=== PATIENT | male | born 1955 | race Caucasian/White ===

== ENCOUNTER 2019-05-21 20:24 | Inpatient (IN) | payer OTHER ==
[~2019-05-21] VITALS: Ht 188 cm; Wt 104.3 kg
[2019-05-21] MEDS ORDERED: SODIUM CHLORIDE 0.9% 1,000 ML IV ONE (20:58)
[2019-05-21] MEDS ORDERED: ENOXAPARIN 100MG/ML SYR SUBCUT ONE (21:30)
[2019-05-21 21:39] LABS: HEMATOCRIT. 42.8 % (42.0-52.0); HEMOGLOBIN. 14.5 g/dL (14.0-18.0); MEAN CORPUSCULAR HEMOGLOBIN 30.5 pg (28.0-32.0); MEAN CORPUSCULAR VOLUME 90.2 fL (80.0-94.0); MEAN PLATELET VOLUME 8.3 fl (7.4-10.4); PLATELET 207 x1000/uL (130-400); RED BLOOD CELL COUNT 4.74 mill/uL (4.7-6.1); RED CELL DISTRIBUTION WIDTH 13.8 % (11.6-14.6)
[2019-05-21 21:46] LABS: CHLORIDE 106 mEq/L (98-107)
[2019-05-21 21:50] LABS: INR 1.1; PARTIAL THROMBOPLASTIN TIME 28.1 sec (23.4-31.0)
[2019-05-21 21:51] LABS: ETHANOL BLOOD < 10 mg/dL
[2019-05-21 22:17] LABS: PLATELET ESTIMATE NORMAL
[2019-05-21] MEDS ORDERED: IOHEXOL-350 100 ML BOTTLE ONE (23:21)
[2019-05-21] MEDS ORDERED: HYDRALAZINE 20MG/ML VIAL IV PRN (23:45)
[2019-05-21] MEDS ORDERED: IPRATROPIUM/ALBUTEROL 0.5-3(2.5)MG/3ML NEB HHN PRN (23:45)
[2019-05-21] MEDS ORDERED: LORAZEPAM 2MG/ML CPJ IV PRN (23:45)
[2019-05-21] MEDS ORDERED: DOCUSATE SODIUM 100MG CAPSULE PO PRN (23:45)
[2019-05-21] MEDS ORDERED: GUAIFENESIN 200MG/10ML SUGAR FREE UDC PO PRN (23:45)
[2019-05-21] MEDS ORDERED: HYDROCODONE/ACETAMINOPHEN 10/325MG TABLET PO PRN (23:45)
[2019-05-21] MEDS ORDERED: MAGNESIUM/ALUMINUM HYDROXIDE/SIMETHICONE 30ML UDC PO PRN (23:45)
[2019-05-21] MEDS ORDERED: NA PHOS,M-B/NA PHOS,DI-BA ENEMA 118ML PR PRN (23:45)
[2019-05-21] MEDS ORDERED: ONDANSETRON HCL 4MG/2ML INJ IV PRN (23:45)
[2019-05-21] MEDS ORDERED: CLONIDINE 0.1MG TABLET PO PRN (23:45)
[2019-05-21] MEDS ORDERED: MORPHINE SULFATE 2 MG/ML CPJ (NOT FOR IM USE) IV PRN (23:45)
[2019-05-21] MEDS ORDERED: DIPHENHYDRAMINE 50MG/ML VIAL IV PRN (23:45)
[2019-05-22] VITALS (33 sets, daily range): BP systolic 104–172; BP diastolic 68–129
[2019-05-22 01:30] LABS: CLARITY URINE CLEAR (CLEAR); COLOR URINE DARK YELLOW (YELLOW); KETONES URINE 1+ (NEGATIVE); LEUKOCYTE ESTERASE URINE NEGATIVE (NEGATIVE); NITRITE URINE NEGATIVE (NEGATIVE); OCCULT BLOOD URINE NEGATIVE (NEGATIVE); PH URINE 5.5 (4.5-8.0); PROTEIN URINE 2+ (NEGATIVE); SPECIFIC GRAVITY URINE 1.063 (1.005-1.030)
[2019-05-22 01:44] LABS: *AMPHETAMINES SCREEN URINE NEGATIVE (NEGATIVE)
[2019-05-22 01:45] LABS: *BARBITURATES SCREEN URINE NEGATIVE (NEGATIVE); *BENZODIAZEPINES SCREEN URINE NEGATIVE (NEGATIVE); *COCAINE SCREEN URINE NEGATIVE (NEGATIVE); METHADONE URINE SCREEN NEGATIVE (NEGATIVE); OPIATES URINE SCREEN NEGATIVE (NEGATIVE)
[2019-05-22 01:46] LABS: CANNABINOID URINE SCREEN NEGATIVE (NEGATIVE); PHENCYCLIDINE URINE SCREEN NEGATIVE (NEGATIVE)
[2019-05-22 05:12] LABS: BASOPHILS % 0.6 % (0.0-2.0); HEMATOCRIT. 40.9 % (42.0-52.0); HEMOGLOBIN. 13.9 g/dL (14.0-18.0); LYMPHOCYTES % 14.1 % (20.0-50.0); MEAN CORPUSCULAR HEMOGLOBIN 30.4 pg (28.0-32.0); MEAN CORPUSCULAR VOLUME 89.5 fL (80.0-94.0); MEAN PLATELET VOLUME 8.5 fl (7.4-10.4); MONOCYTES % 8.5 % (2.0-8.0); NEUTROPHILS % 76.8 % (40.0-76.0); PLATELET 208 x1000/uL (130-400); RED BLOOD CELL COUNT 4.57 mill/uL (4.7-6.1); RED CELL DISTRIBUTION WIDTH 13.3 % (11.6-14.6)
[2019-05-22 05:19] LABS: CHLORIDE 108 mEq/L (98-107)
[2019-05-22 05:26] LABS: LDL CHOLESTEROL 115 mg/dL (5-100)
[2019-05-22 05:27] LABS: HDL CHOLESTEROL 38 mg/dL (40-59)
[2019-05-22 05:28] LABS: CREATINE KINASE 75 IU/L (39-308); T4 FREE 1.09 ng/dL (0.76-1.46)
[2019-05-22 05:30] LABS: CREATINE KINASE MB FRACTION 3.7 ng/mL (0.5-3.6)
[2019-05-22] MEDS ORDERED: ENOXAPARIN 100MG/ML SYR SUBCUT SCH (09:00)
[2019-05-22] MEDS: SODIUM CHLORIDE 0.9% INJ 3ML FLUSH IVF SCH ×3 (10:08→21:18)
[2019-05-22] MEDS ORDERED: ALTEPLASE 10 MG in SODIUM CHLORIDE 0.9% 250 ML IV PRN ×8 (11:15→11:30)
[2019-05-22] MEDS ORDERED: SODIUM CHLORIDE 0.45% 1,000 ML IV ONE (11:15)
[2019-05-22] MEDS ORDERED: HEPARIN 25,000 UNITS PREMIX 500 ML IV PRN ×2 (11:30→12:00)
[2019-05-22] MEDS ORDERED: SODIUM BICARBONATE 4% (2.4MEQ) 5ML VIAL IV ONE (13:02)
[2019-05-22] MEDS ORDERED: LIDOCAINE HCL 1% 20ML VIAL (Pyxis) INJ ONE (13:02)
[2019-05-22 13:26] LABS: INR 1.1
[2019-05-22] MEDS ORDERED: IOHEXOL-300 100 ML BOTTLE ONE (13:59)
[2019-05-22] MEDS ORDERED: CEFTRIAXONE 1 G PREMIX 50 ML IV SCH (16:30)
[2019-05-22] MEDS: AMLODIPINE 2.5MG TABLET PO SCH ×2 (17:28→21:00)
[2019-05-22] MEDS: ACETAMINOPHEN 325MG TABLET PO PRN (20:56)
[2019-05-22 21:37] LABS: BASOPHILS % 0.7 % (0.0-2.0); EOSINOPHILS % 0.2 % (0.0-5.0); HEMATOCRIT. 39.1 % (42.0-52.0); HEMOGLOBIN. 13.3 g/dL (14.0-18.0); LYMPHOCYTES % 14.1 % (20.0-50.0); MEAN CORPUSCULAR HEMOGLOBIN 30.3 pg (28.0-32.0); MEAN CORPUSCULAR VOLUME 89.1 fL (80.0-94.0); MEAN PLATELET VOLUME 8.5 fl (7.4-10.4); MONOCYTES % 10.3 % (2.0-8.0); NEUTROPHILS % 74.7 % (40.0-76.0); PLATELET 194 x1000/uL (130-400); RED BLOOD CELL COUNT 4.39 mill/uL (4.7-6.1); RED CELL DISTRIBUTION WIDTH 13.5 % (11.6-14.6)
[2019-05-22 21:43] LABS: PARTIAL THROMBOPLASTIN TIME 32.8 sec (23.4-31.0)
[2019-05-22 22:03] LABS: CREATINE KINASE MB FRACTION 2.7 ng/mL (0.5-3.6)
[2019-05-22] MEDS: CEFTRIAXONE 1 G PREMIX 50 ML IV SCH (22:36)
[2019-05-23] VITALS (51 sets, daily range): BP systolic 110–168; BP diastolic 48–143
[2019-05-23] MEDS: ACETAMINOPHEN 325MG TABLET PO PRN (03:06)
[2019-05-23] MEDS: SODIUM CHLORIDE 0.9% INJ 3ML FLUSH IVF SCH ×3 (05:28→21:31)
[2019-05-23 06:14] LABS: BASOPHILS % 0.5 % (0.0-2.0); EOSINOPHILS % 0.8 % (0.0-5.0); HEMATOCRIT. 38.2 % (42.0-52.0); HEMOGLOBIN. 13.1 g/dL (14.0-18.0); LYMPHOCYTES % 17.4 % (20.0-50.0); MEAN CORPUSCULAR HEMOGLOBIN 30.9 pg (28.0-32.0); MEAN CORPUSCULAR VOLUME 89.9 fL (80.0-94.0); MEAN PLATELET VOLUME 8.7 fl (7.4-10.4); NEUTROPHILS % 71.3 % (40.0-76.0); PLATELET 182 x1000/uL (130-400); RED BLOOD CELL COUNT 4.25 mill/uL (4.7-6.1); RED CELL DISTRIBUTION WIDTH 13.4 % (11.6-14.6)
[2019-05-23 06:35] LABS: CHLORIDE 108 mEq/L (98-107)
[2019-05-23 07:03] LABS: INR 1.1; PROTHROMBIN TIME 11.3 sec (9.6-11.0)
[2019-05-23] MEDS: AMLODIPINE 2.5MG TABLET PO SCH ×2 (09:53→20:47)
[2019-05-23] MEDS ORDERED: ALTEPLASE 4 MG in SODIUM CHLORIDE 0.9% 100 ML IV PRN ×8 (10:00)
[2019-05-23] MEDS ORDERED: IOHEXOL-350 100 ML BOTTLE ONE (15:09)
[2019-05-23] MEDS: ENOXAPARIN 100MG/ML SYR SUBCUT SCH (19:41)
[2019-05-23] MEDS: CEFTRIAXONE 1 G PREMIX 50 ML IV SCH (20:47)
[2019-05-24] VITALS (11 sets, daily range): BP systolic 133–160; BP diastolic 75–89
[2019-05-24] MEDS: SODIUM CHLORIDE 0.9% INJ 3ML FLUSH IVF SCH ×3 (07:26→22:00)
[2019-05-24 07:58] LABS: BASOPHILS % 0.6 % (0.0-2.0); EOSINOPHILS % 2.8 % (0.0-5.0); HEMATOCRIT. 41.6 % (42.0-52.0); HEMOGLOBIN. 14.4 g/dL (14.0-18.0); LYMPHOCYTES % 20.7 % (20.0-50.0); MEAN CORPUSCULAR HEMOGLOBIN 30.8 pg (28.0-32.0); MEAN CORPUSCULAR VOLUME 89.4 fL (80.0-94.0); MEAN PLATELET VOLUME 8.9 fl (7.4-10.4); MONOCYTES % 11.1 % (2.0-8.0); NEUTROPHILS % 64.8 % (40.0-76.0); PLATELET 208 x1000/uL (130-400); RED BLOOD CELL COUNT 4.66 mill/uL (4.7-6.1)
[2019-05-24] MEDS: ENOXAPARIN 100MG/ML SYR SUBCUT SCH (08:18)
[2019-05-24] MEDS: AMLODIPINE 2.5MG TABLET PO SCH ×2 (08:19→20:01)
[2019-05-24 08:33] LABS: CHLORIDE 106 mEq/L (98-107)
[2019-05-24] MEDS ORDERED: RIVAROXABAN 15 MG TABLET PO SCH (19:00)
== END 2019-05-24 22:36 | disposition short-term general hospital (02) | DRG 175 ==
LOC: ER 20:24 → CVICU 22:59 → EDBEDREQTM 23:04 → EDBEDREQSVC 23:04 → EDBEDREQ 23:04 → ENRESERV 05-22 11:47 → 3WST 05-23 22:50
PROVIDERS: ADMIT Internal Medicine; ATTEND Internal Medicine
PROC: 5A09457 Assistance with Respiratory Ventilation, 24-96 Consecutive Hours, Continuous Positive Airway Pressure (ICD-10-PCS; 2019-05-21)
PROC: 06H033Z Insertion of Infusion Device into Inferior Vena Cava, Percutaneous Approach (ICD-10-PCS; principal; 2019-05-22)
PROC: 4A133B3 Monitoring of Arterial Pressure, Pulmonary, Percutaneous Approach (ICD-10-PCS; 2019-05-22)
PROC: 02HQ32Z Insertion of Monitoring Device into Right Pulmonary Artery, Percutaneous Approach (ICD-10-PCS; 2019-05-22)
PROC: 3E04317 Introduction of Other Thrombolytic into Central Vein, Percutaneous Approach (ICD-10-PCS; 2019-05-22)
DX: I26.99 Other pulmonary embolism without acute cor pulmonale (principal); J96.01 Acute respiratory failure with hypoxia; R65.10 Systemic inflammatory response syndrome (SIRS) of non-infectious origin without acute organ dysfunction; E87.2 Acidosis; I82.432 Acute embolism and thrombosis of left popliteal vein; I45.10 Unspecified right bundle-branch block; G47.33 Obstructive sleep apnea (adult) (pediatric); D72.823 Leukemoid reaction; J44.9 Chronic obstructive pulmonary disease, unspecified; I11.9 Hypertensive heart disease without heart failure; Z96.643 Presence of artificial hip joint, bilateral; I10 Essential (primary) hypertension; R59.0 Localized enlarged lymph nodes; S82.65XA Nondisplaced fracture of lateral malleolus of left fibula, initial encounter for closed fracture; X58.XXXA Exposure to other specified factors, initial encounter; Y93.89 Activity, other specified; Y92.89 Other specified places as the place of occurrence of the external cause; Y99.8 Other external cause status
CPT/HCPCS: 36415; 37211; 71045; 71275; 73610; 80048; 80061; 80305; 80320; 81003; 82550; 82553; 83605; 83735; 83880; 84439; 84443; 84484; 85384; 93005; 93306; 93970; 94660; 96372; 97163; 97166; 99291; C1725; C1766; C1769; J0360; J0696; J1644; J1650; J3490; J7030; J7040; Q9967; G0480